=== PATIENT | female | born 1975 | race Caucasian/White ===

== ENCOUNTER 2018-10-20 09:46 | Emergency (ER) | payer OTHER, MEDICAID ==
[2018-10-20] MEDS: DIPHTH/TET/ACEL PERTUSS (ADULT) 0.5 ML VIAL IM* (10:50)
== END 2018-10-20 10:57 | disposition home or self-care (01) ==
LOC: FTE 10:57
DX: S00.511A Abrasion of lip, initial encounter (principal); I10 Essential (primary) hypertension; W18.39XA Other fall on same level, initial encounter; Y92.9 Unspecified place or not applicable; Z23 Encounter for immunization
CPT/HCPCS: 12011; 90471; 90715; 99283-25

== ENCOUNTER 2019-01-02 06:54 | Day surgery (SDC) | payer OTHER ==
[2019-01-02] MEDS ORDERED: LIDOCAINE 100 MG SYRINGE (08:57)
[2019-01-02] MEDS ORDERED: FENTAnyl 50 MCG/ML VIAL (08:57)
[2019-01-02] MEDS ORDERED: PROPOFOL 200 MG INJ (08:57)
== END 2019-01-02 14:51 | disposition home or self-care (01) ==
LOC: GIL 06:54
DX: D50.9 Iron deficiency anemia, unspecified (principal); D12.5 Benign neoplasm of sigmoid colon; K62.1 Rectal polyp; D12.4 Benign neoplasm of descending colon; K29.70 Gastritis, unspecified, without bleeding; I10 Essential (primary) hypertension
CPT/HCPCS: 43239; 84703; 88305; 88312